=== PATIENT | female | born 1995 | race Caucasian/White ===

== ENCOUNTER 2020-02-21 15:49 | Emergency (ER) | payer SELFPAY ==
[2020-02-21 15:56] VITALS: BP 116/77; PULSE 107; RESP 16; TEMP 37.5; O2SAT 99
--- NOTE | 2020-02-21 16:00 | ED.URI ---
HPI - URI/Sore Throat General Chief Complaint: Upper Respiratory Infection Stated Complaint: cough/chest congestion/runny nose Time Seen by Provider: 02/21/20 16:00 Source: patient and RN notes reviewed History of Present Illness HPI Narrative: Patient is a 24-year-old female who presents the urgent care with complaints of cough, congestion, runny nose that started last night after being on a float trip over the weekend. Patient states that she is used Robitussin but otherwise has not used anything else [id number]-[id number] for symptoms. Patient denies of any fever, nausea, vomiting, known exposure to COVID. No other acute complaints. No acute distress noted. Patient read the plan of care. Related Data Home Medications Medication Instructions Recorded Confirmed No Home Medications 02/21/20 02/21/20 Allergies Allergy/AdvReac Type Severity Reaction Status Date / Time No Known Allergies Allergy Unverified 02/21/20 16:02 Review of Systems Review of Systems: Narrative: CONSTITUTIONAL: Denies fever, chills, or sweats. EYES: Denies visual changes, redness, or discharge. ENT: Reports of congestion, runny nose CARDIOVASCULAR: Denies chest pain, palpitations, or edema. RESPIRATORY: Reports of nonproductive cough without dyspnea GASTROINTESTINAL: Denies abdominal pain, nausea, vomiting, or diarrhea. GENITOURINARY: Denies dysuria or hematuria. SKIN: Denies rash or itching. MUSCULOSKELETAL: Denies back pain, joint pain, or myalgia. NEUROLOGIC: Denies headache, numbness, or weakness. All other systems reviewed are negative, except as documented in HPI. PMFSH Comments At the time of my signature, I reviewed and agree with the nursing past medical, surgical, social, and family history. There is no relevant family history pertinent to the patient complaint. Exam Narrative: Exam Narrative: GENERAL: This is a well-nourished, well-developed patient, in no apparent distress. HEAD: normocephalic, atraumatic. EYES: PERRL. Sclera clear/white. Vision is grossly intact. EARS: External ears normal, auditory canals clear and without drainage, TMs normal without perforation. Hearing grossly intact. NOSE: External nose normal with no obvious nasal discharge, nares without redness, no rhinorrhea. THROAT: Mucous membranes moist, posterior pharynx clear. NECK: Neck supple CARDIOVASCULAR: Regular rate and rhythm without murmurs, gallops, or rubs. RESPIRATORY: Clear to auscultation. Breath sounds equal bilaterally. No wheezes, rales, or rhonchi. SKIN: warm, intact with no suspicious lesions or rash, good texture and turgor. NEURO: awake, alert, and oriented to person, place and time. There were no obvious focal neurologic abnormalities. EXTREMITIES: No clubbing, cyanosis, or edema. Course Vital Signs Vital signs: Vital Signs Temperature 99.5 F 02/21/20 15:56 Pulse Rate 107 H 02/21/20 15:56 Respiratory Rate 16 02/21/20 15:56 Blood Pressure 116/77 02/21/20 15:56 Pulse Oximetry 99 02/21/20 15:56 Temperature 99.5 F 02/21/20 15:56 Pulse Rate 107 H 02/21/20 15:56 Respiratory Rate 16 02/21/20 15:56 Blood Pressure 116/77 02/21/20 15:56 Pulse Oximetry 99 02/21/20 15:56 Reviewed MDM - URI/Sore Throat MDM Narrative Medical decision making narrative: Advised the patient to use [id number] medication as needed for viral upper respiratory symptoms such as Claritin, Flonase and Robitussin. Increase fluids and rest. If you develop any increase in symptoms associated with productive cough, shortness of breath and fever?go to the emergency room for COVID rule out. Follow-up with your PCP within 2 to 5 days if her worsening symptoms or failure to improve. Differential Diagnosis Differential diagnosis: Likely upper respiratory infection, otitis media, sinusitis, viral infection and bronchitis Critical Care Time Critical Care Time Critical Care Time: No Discharge Plan Discharge Clinical Impression: Upper respirator
== END 2020-02-21 16:10 | disposition home or self-care (01) ==
PROVIDERS: Emergency Provider Nurse Practitioner Family
DX: J06.9 Acute upper respiratory infection, unspecified (principal)
CPT/HCPCS: 99211; 99212; G0463

== ENCOUNTER 2021-05-14 13:05 | Emergency (ER) | payer SELFPAY ==
[2021-05-14 13:19] VITALS: BP 101/69; PULSE 66; RESP 20; TEMP 37.2; O2SAT 100
--- NOTE | 2021-05-14 13:23 | ED.URI ---
HPI - URI/Sore Throat General Chief Complaint: Upper Respiratory Infection Stated Complaint: Sore throat/cough Time Seen by Provider: 05/14/21 13:29 Source: patient, RN notes reviewed and old records reviewed Mode of arrival: ambulatory Limitations: no limitations History of Present Illness HPI Narrative: 26-year-old female who presents to [facility] with complaints of sore throat, loss of voice, and cough for the past 3 days. Patient states that she has been exposed to strep at work from fellow worker. Patient reports that she has had just a low grade temperature denies any chills or sweats. Patient states no complaints of nausea vomiting or any diarrhea, denies any loss of appetite, states taking fluids well though is painful to swallow. Patient has not had COVID vaccinations. MD elicited complaint: sore throat Related Data Allergies Allergy/AdvReac Type Severity Reaction Status Date / Time No Known Allergies Allergy Unverified 02/21/20 16:02 Review of Systems Review of Systems: CONSTITUTIONAL: low grade fever,no chills, or sweats. EYES: Denies visual changes, redness, or discharge. ENT: Positive rhinorrhea, congestion, sore throat, no otalgia. CARDIOVASCULAR: Denies chest pain, palpitations, or edema. RESPIRATORY:Positive for cough and hoarseness, denies any dyspnea. GASTROINTESTINAL: Denies abdominal pain, nausea, vomiting, or diarrhea. GENITOURINARY: Denies dysuria or hematuria. SKIN: Denies rash or itching. MUSCULOSKELETAL: Denies back pain, joint pain, or myalgia. NEUROLOGIC: Denies headache, numbness, or weakness. PSYCHIATRIC: Positive history of anxiety or depression. All systems reviewed & are unremarkable except as noted in HPI and below [facility] Past Medical History Medical History (Updated 05/15/21 @ 00:01 by Background Daemon) ADHD (attention deficit hyperactivity disorder) Bipolar 1 disorder Surgical History Surgical History (Updated 05/15/21 @ 20:02 by Maine Trejo NP) No history of previous surgery Family History Family History (Updated 05/15/21 @ 20:02 by Maine Trejo NP) Other No significant family history Social History Social History (Updated 05/15/21 @ 20:03 by Maine Trejo NP) Smoking status: Current every day smoker Tobacco type: cigarettes and e-cigarettes/vaping Additional smoking assessment comments: quit cigarettes 4 months ago now vapes Alcohol intake: current Alcohol use details: social Substance use: unknown Living arrangements: with family Gender identity (if verbalized by the patient): Female Comments At time of signature, agree with nursing past medical, surgical, social and family history. There is no relevant family history pertinent to the presenting complaint Exam Narrative: GENERAL: Well-appearing, well-nourished, and in no acute distress. HEAD: Normocephalic, atraumatic. EYES: PERRLA and EOMI. ENT: Nares red with clear rhinorrhea no epistaxis. Mucous membranes moist.TM's normal with good light rfles, throat red with no exudates or lesions, tonsils swollen and red. NECK: Supple.no lymphadenopathy CHEST: Clear to auscultation. No respiratory distress. SAO2 100% on room air HEART: Regular rate and rhythm. No murmur heard. Normal peripheral pulses. ABDOMEN: Soft, nontender, nondistended, normal active bowel sounds. EXTREMITIES: Normal range of motion. No edema. SKIN: Warm, dry, no rash. NEURO: No focal deficits. Alert and oriented x3. Course Vital Signs Vital signs: Vital Signs Temperature 37.2 C 05/14/21 13:19 Pulse Rate 66 05/14/21 13:19 Respiratory Rate 20 05/14/21 13:19 Blood Pressure 101/69 05/14/21 13:19 Pulse Oximetry 100 05/14/21 13:19 Temperature 37.2 C 05/14/21 13:19 Pulse Rate 66 05/14/21 13:19 Respiratory Rate 20 05/14/21 13:19 Blood Pressure 101/69 05/14/21 13:19 Pulse Oximetry 100 05/14/21 13:19 MDM - URI/Sore Throat Differential Diagnosis Differential diagnosis: Lik
== END 2021-05-14 14:00 | disposition home or self-care (01) ==
PROVIDERS: Emergency Provider Registered Nurse
DX: J02.0 Streptococcal pharyngitis (principal); F17.210 Nicotine dependence, cigarettes, uncomplicated
CPT/HCPCS: 87880; 99213; G0463

== ENCOUNTER 2022-07-06 08:51 | Emergency (ER) | payer OTHER, SELFPAY ==
[2022-07-06 09:01] VITALS: BP 111/76; PULSE 110; RESP 16; TEMP 36.6; O2SAT 100
--- NOTE | 2022-07-06 10:18 | ED.URI ---
HPI - URI/Sore Throat General Chief Complaint: Upper Respiratory Infection Stated Complaint: cough chills Time Seen by Provider: 07/06/22 10:15 Source: patient, RN notes reviewed and old records reviewed Mode of arrival: ambulatory Limitations: no limitations History of Present Illness HPI Narrative: 27-year-old female who presents to [facility] complaints of cough, fever, chills and sweats, throat feels irritated for the past 2 days. Patient reports that her kids did have strep last week and their father also has now been diagnosed with flu. Patient has not been COVID vaccinated or had Flu shot, reports that she did have COVID in November of 2021. Patient reports that she has been taking NyQuil for her symptoms. MD elicited complaint: fever, cough and other (body aches) Onset (ago): day(s) (2) Treatments prior to arrival: other (NyQuil) Related Data Allergies Allergy/AdvReac Type Severity Reaction Status Date / Time No Known Allergies Allergy Unverified 07/06/22 09:48 Review of Systems Review of Systems: CONSTITUTIONAL:Reports malaise, chills, sweats, or fever. EYES: Denies visual changes, redness, or discharge. ENT: Reports rhinorrhea, congestion, sinus pain,no otalgia and sore throat. CARDIOVASCULAR: Denies chest pain, palpitations, or edema. RESPIRATORY: Reports cough.? Denies dyspnea. GASTROINTESTINAL: Denies abdominal pain, nausea, vomiting, diarrhea SKIN: Denies rash or itching. MUSCULOSKELETAL: Reports myalgia. NEUROLOGIC: Denies headache. All systems reviewed & are unremarkable except as noted in HPI and below PMFSH Past Medical History Medical History (Updated 07/07/22 @ 00:00 by Charlie Campos) ADHD (attention deficit hyperactivity disorder) Bipolar 1 disorder Surgical History Surgical History (Updated 05/15/21 @ 20:02 by aMine Trejo NP) No history of previous surgery Family History Family History (Updated 05/15/21 @ 20:02 by Maine Trejo NP) Other No significant family history Social History Social History (Updated 05/15/21 @ 20:03 by Maine Trejo NP) Smoking status: Current every day smoker Tobacco type: cigarettes and e-cigarettes/vaping Additional smoking assessment comments: quit cigarettes 4 months ago now vapes Alcohol intake: current Alcohol use details: social Substance use: unknown Gender identity (if verbalized by the patient): Female Comments At time of signature, agree with nursing past medical, surgical, social and family history. There is no relevant family history pertinent to the presenting complaint Exam Narrative: GENERAL: Well-appearing, well-nourished, and in no acute distress. HEAD: Normocephalic EYES: PERRLA, conjunctivae clear ENT: Nares clear, turbinates edematous and erythematous, clear discharge. Mucous membranes moist. TM pearly manzanares with dull light reflex bilaterally; no tragal tenderness. Oropharynx erythematous without lesions. Tonsils red enlarged and without exudate, no drooling, no hoarseness, no trismus, uvula midline.post nasal drainage. NECK: Supple. No lymphadenopathy CHEST: Clear to auscultation, breath sounds equal. No wheezing, rhonchi, rales, or stridor. No respiratory distress, speaks in full sentences.dry cough, SAO2 100% on room air HEART: Regular rate and rhythm. No murmur heard. SKIN: Warm, dry, no rash. NEURO: Alert and oriented x3. PSYCH: Normal mood and affect Course Course Emergency Course: Patient is aware of diagnosis, understands and agrees to treatment plan.? Anticipatory guidance given.? Patient agrees to follow-up as directed and is aware of reasons to seek care at the emergency department. Portions of this record may have been created with voice recognition software Level of Care: Express Care Visit Vital Signs Vital signs: Vital Signs Temperature 36.6 C 07/06/22 09:01 Pulse Rate 110 H 07/06/22 09:01 Respiratory Rate 16 07/06/22 09:01 Blood Pressure
== END 2022-07-06 10:42 | disposition home or self-care (01) ==
PROVIDERS: Emergency Provider Registered Nurse
DX: J11.1 Influenza due to unidentified influenza virus with other respiratory manifestations (principal); F17.209 Nicotine dependence, unspecified, with unspecified nicotine-induced disorders
CPT/HCPCS: 87804; 99213; G0463